=== PATIENT | female | born 1980 | race Native Hawaiian/Other Pacific Islander ===

== ENCOUNTER 2017-03-07 07:42 | Day surgery (SDC) | payer MEDICAID ==
[2017-03-07 08:29] VITALS: RESP 18
[2017-03-07] MEDS ORDERED: ceFAZolin IV 1 gm in Dextrose 2 GM/100 ML BAG IVPB ONE (08:30)
[2017-03-07] MEDS ORDERED: Bupivacaine 0.5% Inj(30mL) ONE (08:30)
[2017-03-07 08:41] VITALS: BMI 32.5
[2017-03-07 09:03] LABS: HEMATOCRIT 41.4 % (34.0-47.0); MEAN CELL VOLUME 89.2 fl (81.0-99.0); MEAN CORPUSCULAR HEMOGLOBIN 29.2 pg (27.0-31.0); MEAN CORPUSCULAR HGB CONC 32.7 g/dL (33.0-37.0); RED CELL DISTRIBUTION WIDTH 13.1 % (11.5-14.5); WHITE BLOOD COUNT 10.7 K/uL (4.8-10.8)
[2017-03-07 09:13] LABS: BLOOD UREA NITROGEN 14 mg/dl (7-17); CARBON DIOXIDE 27 mmol/L (22-30); CHLORIDE 102 mmol/L (98-107); GFR AFRICAN-AMERICAN > 60; GLUCOSE,RANDOM 93 mg/dL (65-105); SODIUM 137 mmol/l (132-148)
[2017-03-07] MEDS ORDERED: Propofol 10 mg/ml Inj (20 ML) ONE ×2 (09:36→11:02)
[2017-03-07] MEDS ORDERED: ePHEDrine 50 mg/ml Inj ONE (09:36)
[2017-03-07] MEDS ORDERED: Midazolam 2 MG/2 ML VIAL ONE (09:37)
[2017-03-07] MEDS ORDERED: Lidocaine 4% (Laryng-O-Jet) Kit MM ONE (09:38)
[2017-03-07] MEDS ORDERED: Rocuronium 10 mg/ml (5 ml) ONE (09:38)
[2017-03-07] MEDS ORDERED: Sevoflurane - Inhalation Anesthetic Liq (250 ml) ONE (09:39)
[2017-03-07] MEDS ORDERED: Succinylcholine 200 mg/10 ml Inj IV ONE (09:39)
[2017-03-07 09:40] LABS: PARTIAL THROMBOPLASTIN TIME 33.4 Seconds (25.6-37.1)
[2017-03-07] MEDS ORDERED: Lactated Ringer's 1,000 ML IV ONE ×2 (09:45→10:00)
[2017-03-07] MEDS ORDERED: Dexamethasone 4 mg/1 ml ONE (10:18)
[2017-03-07] MEDS ORDERED: DiphenhydrAMINE 50 mg/ml Inj IVP PRN (11:23)
[2017-03-07] MEDS ORDERED: Lactated Ringer's 1,000 ML IV SCH (11:30)
[2017-03-07] MEDS ORDERED: Neostigmine Methylsulfate 2 MG/2 ML ML IV ONE (11:30)
[2017-03-07 14:09] VITALS: BP 105/75; PULSE 72; TEMP 97.4; O2SAT 97
--- NOTE | 2017-03-07 23:15 | OP ---
PROCEDURE DATE: 03/07/2017 PREOPERATIVE DIAGNOSIS: This is a 37-year-old with a large right paraovarian cyst with pelvic pain. POSTOPERATIVE DIAGNOSES: This is a 37-year-old with a large right paraovarian cyst with pelvic pain. The paraovarian cyst appeared to be twisted. The tube appeared to be twisted. PROCEDURE: Robotic right paraovarian cystectomy, endometrial biopsy. SURGEON: Donald Zepeda MD ORIENTAL MEDICINE PRACTITIONER: Sasha Greenberg MD. Dr. Greenberg was the physician's assistant. He was instrumental in the care of the patient. He helped to create exposure, obtaine hemostasis. He was essential in extraction of the specimen. He was present for the closure of the patient. This procedure would not have been possible without his assistance. TYPE OF ANESTHESIA: General endotracheal tube anesthesia. ANESTHESIA ADMINISTERED BY: Barbara Stapleton MD FINDINGS: A large right paraovarian cyst and the tube appeared to be twisted with it. Anteverted uterus sounded at 7 cm. The adnexa otherwise appeared normal. Normal tubes and ovaries bilaterally. DESCRIPTION OF PROCEDURE: After informed consent was obtained, risks, benefits and alternatives had been discussed with the patient and the patient agreed to the plan of care. The patient was then taken into the operating room where she was placed under general anesthesia. She was prepped and draped in dorsal lithotomy position in the usual sterile fashion. A bivalved speculum was placed in the vagina. The cervix was visualized and grasped with single tooth tenaculum. Initially, a Pipelle was placed through the cervix into the uterus to obtain endometrial biopsy. The cervix was gently dilated and then the Pipelle was advanced through the cervix into the uterus for an endometrial sampling of the uterus. The uterus was then sounded about 7 cm. The HUMI manipulator was then placed into the uterus. A Malagon catheter was then placed into the patient's bladder. Attention was then turned to the umbilical fold where an 8 mm incision was made. After infusion of Marcaine and a Veress needle was inserted into the abdominal cavity, the abdomen was insufflated to 18 mmHg. An 8 mm port was introduced into the abdomen and placement was confirmed with a laparoscope. The abdomen was surveyed. An additional port was placed approximately 3 cm superior to the right anterior iliac crest, Marcaine was infused prior to each incision, and an 8 mm port was inserted under direct visualization, another port was placed on the left side approximately 2 cm superior to the anterior iliac crest after Marcaine was infused, and an 8 mm port was inserted under direct visualization. The patient was then placed in Trendelenburg. The instruments used for the surgery were the PK dissector and scissor. The instruments were inserted under direct visualization. The robot was docked without complication. I then proceeded to break scrub and moved over to the surgical console. Attention was then first placed to the right paraovarian cyst. It was noted that the tube was twisted in the area where the cyst was. Initially, the PK was used to make an incision into the cyst and then the PK was then used to expand that opening. The cyst started to drain clear yellowish fluid. The scissors were then used to cut along the cyst wall away from the tube and finally the cyst wall was freed and Dr. Greenberg went through one of the ports to take the cyst wall out of the abdomen. He also used the suction director of institutional giving to suction this fluid and irrigate the area. All instruments were then removed from the abdomen. The incisions were closed with subcuticular stitch using 4-0 Monocryl. The small incisions were then also closed with Dermabond. The patient was then taken to the recovery room in awake and stable condition. All counts were correct. Donald Zepeda MD
== END 2017-03-07 14:24 | disposition home or self-care (01) ==
LOC: H.OPSURG 07:42
PROVIDERS: ATTEND Obstetrics & Gynecology Gynecology
DX: N83.209 Unspecified ovarian cyst, unspecified side (principal); N94.9 Unspecified condition associated with female genital organs and menstrual cycle; J45.909 Unspecified asthma, uncomplicated; R10.2 Pelvic and perineal pain; I10 Essential (primary) hypertension; Z86.73 Personal history of transient ischemic attack (TIA), and cerebral infarction without residual deficits
CPT/HCPCS: 36415; 58100; 58662; 80048; 85027; 85610; 85730; 86850; 86900; J0330; J0690; J1100; J2001; J2250; J2270; J2405; J2704; J2710; J2765; J3010; J7120